=== PATIENT | female | born 1950 | race Caucasian/White ===

== ENCOUNTER → 2017-11-25 | Outpatient (CLI) | payer MEDICARE, OTHER | LOC: PLD → LAB SHORT | DX: D48.5 Neoplasm of uncertain behavior of skin (principal) | CPT/HCPCS: 88305 ==

== ENCOUNTER → 2017-12-03 | Outpatient (CLI) | payer MEDICARE, OTHER | LOC: PLD 12:01 → LAB SHORT 12:01 | DX: L72.11 Pilar cyst (principal); L29.8 Other pruritus | CPT/HCPCS: 88305 ==

== ENCOUNTER 2018-02-04 07:35 | Day surgery (SDC) | payer MEDICARE, OTHER ==
[~2018-02-04] VITALS: Ht 170.2 cm; Wt 85.9 kg
[2018-02-04] MEDS ORDERED: THYR60 PO (08:20)
[2018-02-04] MEDS ORDERED: ROSU5 PO (08:20)
[2018-02-04] MEDS ORDERED: DIVIGEL1 EAC1 (08:21)
== END 2018-02-04 12:47 | disposition home or self-care (01) ==
LOC: ORSCSDS 07:35
PROVIDERS: Orthopaedic Surgery
PROC: 0SBC4ZZ Excision of Right Knee Joint, Percutaneous Endoscopic Approach (ICD-10-PCS; principal; 2018-02-04 09:00)
DX: M23.203 Derangement of unspecified medial meniscus due to old tear or injury, right knee (principal); E03.9 Hypothyroidism, unspecified; E78.5 Hyperlipidemia, unspecified; Z79.899 Other long term (current) drug therapy; Z79.82 Long term (current) use of aspirin
CPT/HCPCS: J0171; J0690; J2250; J3010; J3301; J7120

== ENCOUNTER 2018-08-11 06:45 | Day surgery (SDC) | payer MEDICARE, OTHER ==
[~2018-08-11] VITALS: Ht 170.2 cm; Wt 84.5 kg
[~2018-08-11 06:45] MED LIST: DIVIGEL1 EAC1; ROSU5 PO; THYR60 PO
== END 2018-08-11 09:10 | disposition home or self-care (01) ==
LOC: ORSCSDS 06:45
PROVIDERS: Internal Medicine Gastroenterology
PROC: 0DJD8ZZ Inspection of Lower Intestinal Tract, Via Natural or Artificial Opening Endoscopic (ICD-10-PCS; principal; 2018-08-11 08:00)
DX: Z12.11 Encounter for screening for malignant neoplasm of colon (principal); K64.8 Other hemorrhoids; K57.30 Diverticulosis of large intestine without perforation or abscess without bleeding; Z86.010 Personal history of colon polyps; E78.5 Hyperlipidemia, unspecified; E03.9 Hypothyroidism, unspecified; Z79.82 Long term (current) use of aspirin; Z79.899 Other long term (current) drug therapy
CPT/HCPCS: J0330; J1980; J2405; J7120

== ENCOUNTER → 2019-06-23 | Outpatient (CLI) | payer MEDICARE, OTHER ==
[2019-06-28 14:07] LABS: HPV 16 Negative (Negative); HPV 18 Negative (Negative); HPV OTHER HR TYPES Negative (Negative)
== END | disposition home or self-care (01) ==
LOC: LAB SHORT 14:47 → LAB 14:47
PROVIDERS: Obstetrics & Gynecology Gynecology
DX: Z91.89 Other specified personal risk factors, not elsewhere classified (principal)
CPT/HCPCS: 87624; G0123